=== PATIENT | male | born 1950 | race Caucasian/White ===

== ENCOUNTER 2018-10-23 01:58 | Emergency (ER) | payer MEDICARE, BC, OTHER ==
[~2018-10-23] VITALS: Ht 182.9 cm; Wt 71.4 kg
[2018-10-23] MEDS ORDERED: acetaminophen 325mg tablet PO ONE (03:05)
[2018-10-23] MEDS ORDERED: LIDOcaine 1.5% w/epinephrine 1:200,000 5ml ampul IJ ONE (03:05)
[2018-10-23] MEDS ORDERED: LIDOcaine 1% w/EPI 1:100,000 30ml vial (MDV) IJ ONE (03:10)
[2018-10-23 04:51] VITALS: BP 126/77
== END 2018-10-23 04:54 | disposition home or self-care (01) ==
LOC: ER 02:00
DX: S06.0X0A Concussion without loss of consciousness, initial encounter (principal); S01.01XA Laceration without foreign body of scalp, initial encounter; W06.XXXA Fall from bed, initial encounter; Y93.89 Activity, other specified; Y92.89 Other specified places as the place of occurrence of the external cause; Y99.8 Other external cause status
CPT/HCPCS: 12032; 99284; J3490; 12002; 99283